=== PATIENT | male | born 1950 | race African-American/Black ===

== ENCOUNTER 2021-01-07 14:18 | Emergency (ER) | payer OTHER ==
[2021-01-07] MEDS ORDERED: Sodium Chloride 0.9% 200 ML ONE (15:00)
[2021-01-07] MEDS ORDERED: CEFAZOLIN 1 GM VIAL ONE (15:01)
[2021-01-07 15:09] LABS: #Basophils 0.1 thou/uL (0.0-0.2); #Eosinphils 0.1 thou/uL (0.0-0.7); #Lymphocytes 1.9 thou/uL (1.20-3.40); #Monocytes 0.5 thou/uL (0.11-0.59); %Basophils 1.4 % (0.0-1.0); %Lymphocytes 34.1 % (21.0-51.0); %Monocytes 9.6 % (0.0-10.0); %Neutrophils 53.9 % (42.0-75.0); Hemoglobin 13.3 g/dL (14.0-18.0); Mean Corpuscular HGB CONC 31.1 g/dL (32.0-36.0); Mean Corpuscular Hemoglobin 27.7 pg (27.0-31.0); Mean Platelet Volume 10.3 fL (7.4-10.4); Platelet Count 200 thou/uL (130-400); RBC Distribution Width 12.6 % (11.5-14.5); Red Blood Cell (RBC) Count 4.82 mill/uL (4.70-6.10); White Blood Cell (WBC) Count 5.6 thou/uL (4.8-10.8)
[2021-01-07 15:19] LABS: ALT (SGPT) 20 U/L (8-55); AST (SGOT) 26 U/L (5-34); Albumin 4.5 g/dL (3.4-4.8); Alkaline Phosphatase 61 U/L (40-110); Anion Gap 17 mmol/L (10-20); BUN (Urea Nitrogen) 27 mg/dL (8.4-25.7); Bilirubin, Total 0.8 mg/dL (0.2-1.2); Calc. Creatinine Clearance 0 mL/min (70-130); Calcium 10.2 mg/dL (7.8-10.44); Carbon Dioxide 23 mmol/L (23-31); Chloride 109 mmol/L (98-107); Glucose 163 mg/dL (80-115); Potassium 4.1 mmol/L (3.5-5.1); Protein, Total 7.5 g/dL (5.8-8.1); Sodium 145 mmol/L (136-145)
== END 2021-01-07 16:05 | disposition home or self-care (01) ==
LOC: MADERS 14:18
DX: S68.012A Complete traumatic metacarpophalangeal amputation of left thumb, initial encounter (principal); I25.2 Old myocardial infarction; E11.9 Type 2 diabetes mellitus without complications; E78.5 Hyperlipidemia, unspecified; E78.00 Pure hypercholesterolemia, unspecified; I10 Essential (primary) hypertension; Z79.4 Long term (current) use of insulin; W27.0XXA Contact with workbench tool, initial encounter
CPT/HCPCS: 80053; 85025; 96365; J0690; J3490